=== PATIENT | female | born 1995 | race Caucasian/White ===

== ENCOUNTER 2018-09-08 08:57 | Emergency (ER) | payer BC, MEDICAID ==
--- NOTE | 2018-09-08 10:44 | ED ---
Complex/Multi-Sys Presentation - HPI Summary HPI Summary: Pt is a 23 y/o F presenting to the ED with her mother for abnormal bloodwork. The pt is unable to give her own report due to delayed cognitive ability. Per the pts mom, her oral intake has been down for about the last 1.5 weeks, they went to [facility] on 09/04/18 for lab work. The pts labwork shows macrocytosis and an elevated blood count, which is why they are here. The pt herself has no complaints and has not experienced seizures. - History Of Current Complaint Chief Complaint: EDWeakness Time Seen by Provider: 09/08/18 10:17 Hx Obtained From: Patient, Family/Mill Supervisor - mother Onset/Duration: Gradual Onset, Lasting Weeks, Still Present Timing: Constant Severity Currently: Moderate Severity Initially: Moderate Associated Signs And Symptoms: Positive: Decreased Oral Intake - Allergies/Home Medications Allergies/Adverse Reactions: Allergies Allergy/AdvReac Type Severity Reaction Status Date / Time No Known Allergies Allergy Verified 09/08/18 09:50 Home Medications: Home Medications Albuterol HFA INHALER* [Ventolin HFA Inhaler*] 2 puff INH Q4H PRN 09/08/18 [ History Confirmed 09/08/18] Divalproex DR TAB(*) [Depakote DR TAB(*)] 250 mg PO TID 09/08/18 [History Confirmed 09/08/18] Divalproex Sodium 125 mg PO BID 09/08/18 [History Confirmed 09/08/18] Multivitamin [Children's Chewable Vitamin] 1 tab PO DAILY 09/08/18 [History Confirmed 09/08/18] lamoTRIgine [Lamotrigine ER] 50 mg PO BID 09/08/18 [History Confirmed 09/08/18] lamoTRIgine [Lamotrigine ER] 100 mg PO BID 09/08/18 [History Confirmed 09/08/18] levOCARNitine [Levocarnitine] 330 mg PO TID 09/08/18 [History Confirmed 09/08/18 ] PMH/Surg Hx/FS Hx/Imm Hx Previously Healthy: No Endocrine/Hematology History: Denies: Hx Diabetes, Hx Thyroid Disease Cardiovascular History: Denies: Hx Hypertension Respiratory History: Denies: Hx Asthma, Hx Chronic Obstructive Pulmonary Disease (COPD) GI History: Denies: Hx Ulcer Neurological History: Reports: Other Neuro Impairments/Disorders - Seizures, hydrocephalus, cerebral palsy, IVH, autistic, MR. Psychiatric History: Reports: Hx Autism - Surgical History Surgery Procedure, Year, and Place: Heel Cord release. RASPBERRY CHECKER Shunt. Tubes in ears Infectious Disease History: No Infectious Disease History: Denies: Hx Hepatitis, Hx Human Immunodeficiency Virus (HIV), Traveled Outside the [place] in Last 30 Days - Family History Known Family History: Negative: Hypertension - Social History Alcohol Use: None Substance Use Type: Reports: None Smoking Status (MU): Never Smoked Tobacco Review of Systems Negative: Fever Positive: Other - decreased oral intake All Other Systems Reviewed And Are Negative: Yes Physical Exam - Summary Physical Exam Summary: Appearance: The patient is well-nourished in no acute distress and in no acute pain. Skin: The skin is warm and dry and skin color reflects adequate perfusion HEENT: The head is normocephalic and atraumatic. The pupils are equal and reactive. The conjunctivae are clear and without drainage. Nares are patent and without drainage. Mouth reveals moist mucous membranes and the throat is without erythema and exudate. The external ears are intact. The ear canals are patent and without drainage. The tympanic membranes are intact. Neck: The neck is supple with full range of motion and non-tender. There are no carotid bruits. There is no neck vein distension. Respiratory: Chest is non-tender. Lungs are clear to auscultation and breath sounds are symmetrical and equal. Cardiovascular: Heart is regular rate and rhythm. There is no murmur or rub auscultated. There is no peripheral edema and pulses are symmetrical and equal. Abdomen: The abdomen is soft and non-tender. There are normal bowel sounds heard in all four quadrants and there is no organomegaly palpated. Musculoskeletal: There is no back tenderness noted. Extremities are non-tender with full range of motion. There is good capillary refill. There is no peripheral edema or calf tenderness elicited. Neurological: Patient is alert and oriented to person, place and time. The patient has symmetrical motor strength in all four extremities. Cranial nerves are grossly intact. Deep tendon reflexes are symmetrical and equal in all four extremities. Psychiatric: The patient has an appropriate affect and does not exhibit any anxiety or depression. Triage Information Reviewed: Yes Vital Signs On Initial Exam: Initial Vitals Temp Pulse Resp BP Pulse Ox 98.6 F 137 16 105/74 96 09/08/18 08:58 09/08/18 08:58 09/08/18 08:58 09/08/18 08:58 09/08/18 08:58 Vital Signs Reviewed: Yes Diagnostics - Vital Signs Vital Signs Temp Pulse Resp BP Pulse Ox 09/08/18 10:00 105 21 99 09/08/18 09:40 127/69 09/08/18 09:39 123 96 09/08/18 08:58 98.6 F 137 16 105/74 96 - Laboratory Result Diagrams: 09/08/18 10:44 09/08/18 10:44 Lab Statement: Any lab studies that have been ordered have been reviewed, and results considered in the medical decision making process. Complex Multi-Symp Course/Dx Course Of Treatment: Danae has apparently had a change in her appetite in the last 3-4 weeks and has been refusing food and subsequently eating very little. Routine blood work done a few days ago revealed a leukocytosis with a macrocytosis and hypokalemia. She was sent in with a concern for her calcium. She was nontoxic in appearance with stable vitals here and labs were repeated while we're waiting for a fax with previous values. She no longer had a leukocytosis but did have a mild macrocytosis. She was not anemic. Her calcium was a little bit low but so was her albumin and total protein. A free ionized calcium was within normal limits. At the family's behest I spoke with Dr. Mercedes who recommended follow-up with [facility] and he would also be involved. There is no emergency at this point however it's unclear exactly why she has had this change in behavior. - Diagnoses Provider Diagnoses: Anorexia Discharge - Sign-Out/Discharge Documenting (check all that apply): Patient Departure - Discharge Patient Received Moderate/Deep Sedation with Procedure: No - Discharge Plan Condition: Fair Disposition: HOME Patient Education Materials: Anorexia Nervosa (ED) Referrals: Gillian Monroy MD [Primary Care Provider] - 3 Days Additional Instructions: Follow up at [facility] as soon as possible. Return to ED for any new or worsening symptoms. - Billing Disposition and Condition Condition: FAIR Disposition: Home - Attestation Statements Document Initiated by Scribe: Yes Documenting Scribe: Ludy O'Jorge A Provider For Whom Scribe is Documenting (Include Credential): Rojelio Clifton MD. Scribe Attestation: ILudy, scribed for Rojelio Clifton MD. on 09/08/18 at 2230. Scribe Documentation Reviewed: Yes Provider Attestation: The documentation as recorded by the scribe, Ludy Jones accurately reflects the service I personally performed and the decisions made by me, Rojelio Clifton MD. Status of Scribe Document: Viewed
[2018-09-08 10:53] LABS: ABS Basophils 0 10^3/ul (0-0.2); ABS Eosinophils 0 10^3/ul (0-0.6); ABS Lymphocytes 2.1 10^3/ul (1.0-4.8); ABS Monocytes 0.7 10^3/ul (0-0.8); ABS Neutrophils 3.4 10^3/ul (1.5-7.7); ABS Nucleated RBC 0 10^3/ul; Eosinophil % 0.6 %; Hematocrit 41 % (35-47); Hemoglobin 13.5 g/dl (12.0-16.0); Lymphocyte % 33.4 %; Mean Corpuscular HGB Conc 33 g/dl (31-36); Mean Corpuscular Hemoglobin 34 pg (27-31); Mean Corpuscular Volume 101 fL (80-97); Mean Platelet Volume 7.6 fL (7.4-10.4); Nucleated Red Blood Cells % 0.2; Platelet Count 167 10^3/ul (150-450); Red Blood Count 4.03 10^6/ul (4.00-5.40); Red Cell Distribution Width 13 % (10.5-15); White Blood Count 6.3 10^3/ul (3.5-10.8)
[2018-09-08 11:20] LABS: ALT 12 U/L (7-52); AST 28 U/L (13-39); Albumin 1.9 g/dL (3.2-5.2); Albumin/Globulin Ratio 0.7 (1-3); Alkaline Phosphatase 62 U/L (34-104); Anion Gap 3 mmol/L (2-11); Blood Urea Nitrogen 11 mg/dL (6-24); C Reactive Protein < 1.00 mg/L (<8.01); CO2 Carbon Dioxide 29 mmol/L (22-32); Calcium 7.7 mg/dL (8.6-10.3); Chloride 109 mmol/L (101-111); EGFR Non-African American 152.9 (>60); Globulin 2.9 g/dL (2-4); Glucose 74 mg/dL (70-100); Potassium 3.6 mmol/L (3.5-5.0); Sodium 141 mmol/L (135-145); Total Protein 4.8 g/dL (6.4-8.9)
[2018-09-08 11:55] LABS: TSH (Thyroid Stimulating Horm) 3.95 mcIU/mL (0.34-5.60)
[2018-09-08 14:54] LABS: Folate 6.43 ng/mL (>3.99)
[2018-09-08 15:57] VITALS: BP 100/59
== END 2018-09-08 15:56 | disposition home or self-care (01) ==
LOC: ED 08:57
DX: R63.0 Anorexia (principal); F84.0 Autistic disorder
CPT/HCPCS: 36415; 80053; 80164; 80175; 82140; 82330; 82607; 82746; 83090; 84443; 85025; 86140; 99282

== ENCOUNTER 2018-09-10 10:31 | Emergency (ER) | payer BC, MEDICAID ==
[2018-09-10 10:49] VITALS: BP 94/67
--- NOTE | 2018-09-10 11:05 | UC ---
UC General HPI - HPI Summary HPI Summary: Patient is 23 year old female , who present today to the urgent care with her mother for weightloss and new episode of incontinence. Patient has history of developmental delay And history is provided by patient' s mother. Patient has been having unintentional weight loss and decreased appetite for about a month now. Was seen at [facility] on 09/04/18 and had some blood work done that showed leukocytosis and macrocytosis and was told to go to the ER. She was seen on 09/08/18 at [facility]- labs were obtained again and did not show any leukocytosis, calcium was low, albumin was low as well but ionized calcium was normal. She had an episode of incontinence last night and mom brought her here to get a urinalysis. She denies any fevers or chills at home. She denies any seizure that she noticed and no significant change in the behavior other than she is slightly lethargic. She has an appointment tomorrow at [facility] for follow-up. Her mother spoke to the patient's neurologist/epileptologist after her visit to the ER on 09/08/18 and he recommended getting a UA and CBC. CBC in the ER was normal so mom brought her today to get CBC. She has an appointment with neurologist on October 03 . She recently had her blood levels of antiepileptic meds done-Lamictal and Depakote and they are not available yet. - History of Current Complaint Chief Complaint: UCGeneralIllness Stated Complaint: PERSONAL Time Seen by Provider: 09/10/18 10:55 Hx Obtained From: Family/Filtration Plant Operator - Mother Hx Last Menstrual Period: 3 weeks ago Pain Intensity: 0 - Allergy/Home Medications Allergies/Adverse Reactions: Allergies Allergy/AdvReac Type Severity Reaction Status Date / Time No Known Allergies Allergy Verified 09/10/18 10:49 Home Medications: Home Medications Ranitidine TAB (NF) [Zantac TAB (NF)] 150 mg PO BID 09/10/18 [History Confirmed 09/10/18] PMH/Surg Hx/FS Hx/Imm Hx - Additional Past Medical History Additional PMH: Developmental delay Autism Seizures 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 SHIPPING LEAD Shunt. Tubes in ears. PDA repair as a baby - Family History Known Family History: Negative: Hypertension - Social History Alcohol Use: None Substance Use Type: None Smoking Status (MU): Never Smoked Tobacco - Immunization History Vaccination Up to Date: Yes Review of Systems All Other Systems Reviewed And Are Negative: Yes Constitutional: Positive: Negative Skin: Positive: Negative Eyes: Positive: Negative ENT: Positive: Negative Respiratory: Positive: Negative Cardiovascular: Positive: Negative Gastrointestinal: Positive: Negative Genitourinary: Positive: Other - Episode of incontinence Motor: Positive: Negative Neurovascular: Positive: Negative Musculoskeletal: Positive: Negative Neurological: Positive: Negative Psychological: Positive: Negative Is Patient Immunocompromised?: No Physical Exam - Summary Physical Exam Summary: Physical Exam: Const: No signs of apparent distress present. Head/Face: Atraumatic, normocephalic on inspection. Eyes: EOMI and PERRLA in both eyes. Conjunctivae clear. No discharge noted ENT: Hearing normal, Respiratory: Respirations are unlabored. Lungs clear to auscultation bilaterally, no wheezing , rhonchi or rales noted . CVS: Regular rate and Rhythm, S1S2 normal , no murmurs identified. Extremities: Peripheral circulation is grossly normal. Pulses 2+ Abdomen : Soft non tender , nondistended , Bowel sounds present . No guarding , rebound tenderness or rigidity noted. Skin: No lesions or rash located on the upper extremities or on the lower extremities. Neuro: Cranial nerves II to XII intact, motor and sensory intact. DTR Intact bilaterally. Mood is normal. Affect is normal. Triage Information Reviewed: Yes Vital Signs: Initial Vital Signs Temp 97.6 F 09/10/18 10:39 Pulse 121 09/10/18 10:39 Resp 18 09/10/18 10:39 BP 94/67 09/10/18 10:39 Pulse Ox 98 09/10/18 10:39 Vital Signs Reviewed: Yes Course/Dx - Course Course Of Treatment: During the visit today, we obtained UA , which was negative for leuk esterase or nitrites. She was slightly tachycardic and had decreased by mouth intake since yesterday so she was given 700 cc of normal saline. Unclear at this time whether the episode of incontinence was a seizure activity versus not, but she did not have any seizures as per mom and she is acting her normal self at this time. We discussed the findings and further plan to keep her appointment with [facility] tomorrow for follow-up and discuss the appetite stimulants. Antiepileptic med levels are elevated at this time and follow-up with the neurologist further recommendations. Patient expressed understanding . - Diagnoses Provider Diagnosis: Weight loss, Dehydration Discharge - Sign-Out/Discharge Documenting (check all that apply): Patient Departure All imaging exams completed and their final reports reviewed: No Studies - Discharge Plan Condition: Stable Disposition: HOME Referrals: Gillian Monroy MD [Primary Care Provider] - Additional Instructions: Please keep her appointment with [facility] tomorrow for follow-up. Antiepileptic med levels are awaited at this time and please follow-up with the neurologist further recommendations. Patient's mother expressed understanding . Return to Urgent care / ER if symptoms get worse. - Billing Disposition and Condition Condition: STABLE Disposition: Home
[2018-09-10] MEDS ORDERED: NS 0.9% 1000 ML** 1,000 ML IV ONE (11:18)
== END 2018-09-10 12:49 | disposition home or self-care (01) ==
LOC: UCEAST 10:31
DX: R63.4 Abnormal weight loss (principal); E86.0 Dehydration; R32 Unspecified urinary incontinence; F84.0 Autistic disorder
CPT/HCPCS: 81003; 96360; 99211; G0463

== ENCOUNTER 2018-09-20 09:36 | Emergency (ER) | payer BC, MEDICAID ==
--- NOTE | 2018-09-20 10:03 | ED ---
Neurological HPI - HPI Summary HPI Summary: Patient is a 23 y/o female who presents to the ED c/o being off-balance. As per mother, shes had increased generalized weakness and decreased appetite for the past 2-3 weeks. Yesterday she began to be mildly off-balance, which worsened this morning. She recently had lab work done at [facility] which was abnormal, and they recommended she come to the ED for a brain CT. Patient was put on Megace 1 week ago but was taken off because of LE and finger edema. She went to the 4 days ago and was put on IV fluids for dehydration. Mother notes a mild cough, but denies any fever, congestion, or abdominal pain. 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 Mother denies any recent injury. - History of Current Complaint Chief Complaint: EDNeurologicalDeficit Stated Complaint: TROUBLE WALKING PER PT PARENT Time Seen by Provider: 09/20/18 09:56 Hx Obtained From: Patient, Family/[employer] Line - Mother Hx Last Menstrual Period: 3 weeks ago Onset/Duration: Gradual Onset, Started weeks ago - 2-3, Worse Since Timing: Constant Neurological Deficit Location: Generalized Pain Intensity: 0 Pain Scale Used: 0-10 Numeric Character: Weak, Other: - off-balance Aggravating: Nothing Alleviating: Nothing Related Hx: Seizure - Allergy/Home Medications Allergies/Adverse Reactions: Allergies Allergy/AdvReac Type Severity Reaction Status Date / Time No Known Allergies Allergy Verified 09/20/18 09:44 PMH/Surg Hx/FS Hx/Imm Hx Endocrine/Hematology History: Denies: Hx Diabetes, Hx Thyroid Disease Cardiovascular History: Denies: Hx Hypertension Respiratory History: Denies: Hx Asthma, Hx Chronic Obstructive Pulmonary Disease (COPD) GI History: Denies: Hx Ulcer Neurological History: Reports: Hx Seizures, Other Neuro Impairments/Disorders - Dandy-Walker, hydrocephalus, cerebral palsy, IVH, MR. Psychiatric History: Reports: Hx Autism - Surgical History Surgery Procedure, Year, and Place: Heel Cord release. ENDODONTICS DENTIST Shunt. Tubes in ears. PDA repair as a baby Infectious Disease History: No Infectious Disease History: Denies: Hx Hepatitis, Hx Human Immunodeficiency Virus (HIV), Traveled Outside the [place] in Last 30 Days - Family History Known Family History: Negative: Hypertension - Social History Alcohol Use: None Hx Substance Use: No Substance Use Type: Reports: None Hx Tobacco Use: No Smoking Status (MU): Never Smoked Tobacco Review of Systems Positive: Other - decreased appetite. Negative: Fever Negative: Other - congestion Positive: Cough - mild Negative: Abdominal Pain Neurological: Other - off-balance Positive: Weakness - generalized All Other Systems Reviewed And Are Negative: Yes Physical Exam - Summary Physical Exam Summary: Appearance: no pain distress, syndromic appearance, small stature Skin: warm, dry, reflects adequate perfusion Head/face: palpable shunt along right scalp and neck Eyes: EOMI, BRO, horizontal nystagmus ENT: mucous membranes moist, dried blood in left nare Neck: supple, non-tender Respiratory: CTA, breath sounds present Cardiovascular: RRR, pulses symmetrical Abdomen: non-tender, soft Bowel Sounds: present Musculoskeletal: normal, strength/ROM intact Neuro: normal, sensory motor intact, A&Ox3 Triage Information Reviewed: Yes Vital Signs On Initial Exam: Initial Vitals Temp Pulse Resp BP Pulse Ox 98.5 F 146 18 123/55 99 09/20/18 09:39 09/20/18 09:39 09/20/18 09:39 09/20/18 09:39 09/20/18 09:39 Vital Signs Reviewed: Yes - Susanna Coma Scale Best Eye Response: 4 - Spontaneous Best Motor Response: 6 - Obeys Commands Best Verbal Response: 4 - Confused Coma Scale Total: 14 Diagnostics - Vital Signs Vital Signs Temp Pulse Resp BP Pulse Ox 09/20/18 09:39 98.5 F 146 18 123/55 99 - Laboratory Result Diagrams: 09/20/18 10:44 Lab Statement: Any lab studies that have been ordered have been reviewed, and results considered in the medical decision making process. Re-Evaluation - Re-Evaluation First Eval Re-Evaluation Time: 11:14 Change: Unchanged Comment: Patients mother spoke to her neurologists Dr. Mercedes at [facility]. He would like the patient to be transferred to [facility] for an evaluation of her shunt, brain CT, and EEG. Patient will be discharged and her mother will take her to [facility]. At this time the brain CT will be cancelled. Course/Dx - Course Course Of Treatment: Nurse's notes reviewed. Patient with a host of chronic illnesses presents with failure to thrive and difficulty walking. She does have a shunt has been in since age 5. There is no injury to the patient for to the area of the shunt. CT scan was pending with shunt series to follow however mother spoke to the neurologist in [place] would like to have the patient evaluated there. She wishes to discharge here rather than transfer and take her daughter there for evaluation. She has received IV fluids here and is otherwise stable. Laboratories thus far have been benign. - Differential Dx Differential Diagnoses Neuro: Positive: Other - Shunt disruption, hydrocephalus , intracranial injury, partial seizures, metabolic abnormality - Diagnoses Provider Diagnoses: Dandy-Walker syndrome, Ataxia Discharge - Sign-Out/Discharge Documenting (check all that apply): Patient Departure - Discharge Patient Received Moderate/Deep Sedation with Procedure: No - Discharge Plan Condition: Stable Disposition: HOME Referrals: Gillian Monroy MD [Primary Care Provider] - Additional Instructions: Go directly to [facility] to be seen in the ED and have consultation with Dr. Mercedes. Return if worse or other concerns. - Billing Disposition and Condition Condition: STABLE Disposition: Home - Attestation Statements Document Initiated by Scribe: Yes Documenting Scribe: Karis Covarrubias Provider For Whom Lorraine is Documenting (Include Credential): Sharan Granados MD Scribe Attestation: IKaris, scribed for Sharan Granados MD on 09/20/18 at 1120. Scribe Documentation Reviewed: Yes Provider Attestation: The documentation as recorded by the Karis alaniz accurately reflects the service I personally performed and the decisions made by me, Sharan Granados MD Status of Scribe Document: Viewed
[2018-09-20] MEDS ORDERED: NS 0.9% 1000 ML** 1,000 ML IV.FLUID IV ONE (10:06)
[2018-09-20 10:55] LABS: ABS Basophils 0 10^3/ul (0-0.2); ABS Eosinophils 0 10^3/ul (0-0.6); ABS Lymphocytes 1.7 10^3/ul (1.0-4.8); ABS Monocytes 0.7 10^3/ul (0-0.8); ABS Neutrophils 3.9 10^3/ul (1.5-7.7); ABS Nucleated RBC 0 10^3/ul; Eosinophil % 0.5 %; Hematocrit 43 % (35-47); Hemoglobin 14.2 g/dl (12.0-16.0); Lymphocyte % 27.2 %; Mean Corpuscular HGB Conc 33 g/dl (31-36); Mean Corpuscular Hemoglobin 33 pg (27-31); Mean Corpuscular Volume 100 fL (80-97); Mean Platelet Volume 7.8 fL (7.4-10.4); Nucleated Red Blood Cells % 0.1; Platelet Count 138 10^3/ul (150-450); Red Cell Distribution Width 13 % (10.5-15); White Blood Count 6.4 10^3/ul (3.5-10.8)
[2018-09-20 11:41] LABS: Albumin 2.3 g/dL (3.2-5.2); Albumin/Globulin Ratio 0.6 (1-3); BUN/Creatinine Ratio 25.9 (8-20); Calcium 7.9 mg/dL (8.6-10.3); EGFR African American 169.3 (>60); EGFR Non-African American 139.9 (>60); Globulin 3.6 g/dL (2-4); Potassium 4.5 mmol/L (3.5-5.0); Total Bilirubin 0.3 mg/dL (0.2-1.0); Total Protein 5.9 g/dL (6.4-8.9)
[2018-09-20 11:59] VITALS: BP 97/61
== END 2018-09-20 11:57 | disposition home or self-care (01) ==
LOC: ED 09:36
DX: Q03.1 Atresia of foramina of Magendie and Luschka (principal); R26.0 Ataxic gait; R62.7 Adult failure to thrive; R05 Cough; R56.9 Unspecified convulsions; G80.9 Cerebral palsy, unspecified; F84.0 Autistic disorder
CPT/HCPCS: 36415; 80053; 80164; 80175; 85025; 96360; 99282